=== PATIENT | male | born 1990 | race Caucasian/White ===

== ENCOUNTER 2017-12-22 14:35 | Emergency (ER) | payer BC, MEDICAID, OTHER ==
[2017-12-22 14:53] VITALS: BP 145/87
--- NOTE | 2017-12-22 15:11 | UC ---
Ear Complaint HPI - HPI Summary HPI Summary: ONSET OF RIGHT LOWER JAW PAIN TODAY THE PATIENT THINKS MIGHT BE DUE TO BAD TEETH. HE HAS HAD A MILD COUGH AND SOME RIGHT EAR PAIN FOR THE PAST FEW DAYS WELL. NO FEVER, NAUSEA/VOMITING. TOOK SOME TYLENOL WHICH SEEMED TO HELP. - History of Current Complaint Chief Complaint: UCDentalProblem Stated Complaint: JAW/ EAR PAIN Time Seen by Provider: 12/22/17 14:50 Hx Obtained From: Patient Onset/Duration: Gradual Onset, Lasting Days, Still Present Severity Initially: Moderate Severity Currently: Moderate Pain Intensity: 7 Pain Scale Used: 0-10 Numeric Alleviating Factors: Nothing Associated Signs/Symptoms: Positive: URI Symptoms - Allergies/Home Medications Allergies/Adverse Reactions: Allergies Allergy/AdvReac Type Severity Reaction Status Date / Time No Known Allergies Allergy Verified 12/22/17 14:54 PMH/Surg Hx/FS Hx/Imm Hx Previously Healthy: Yes - Surgical History Surgical History: None - Family History Known Family History: Positive: Hypertension - Social History Alcohol Use: Weekly Substance Use Type: Marijuana Substance Use Comment - Amount & Last Used: weekly Smoking Status (MU): Heavy Every Day Tobacco Smoker Type: Cigarettes Amount Used/How Often: 1 ppd Household Exposure Type: Cigarettes - Immunization History Most Recent Influenza Vaccination: unsure Most Recent Tetanus Shot: up to date Most Recent Pneumonia Vaccination: never Review of Systems Constitutional: Negative Skin: Negative ENT: Dental Pain, Ear Ache Respiratory: Negative Cardiovascular: Negative Gastrointestinal: Negative All Other Systems Reviewed And Are Negative: Yes Physical Exam Triage Information Reviewed: Yes Appearance: Well-Appearing, No Pain Distress, Well-Nourished Vital Signs: Initial Vital Signs Temp 98.8 F 12/22/17 14:44 Pulse 83 12/22/17 14:44 Resp 16 12/22/17 14:44 BP 145/87 12/22/17 14:44 Pulse Ox 97 12/22/17 14:44 Vital Signs Reviewed: Yes Eyes: Positive: Conjunctiva Clear ENT: Positive: Hearing grossly normal, Pharynx normal, TMs normal, Other - BILATERAL EAC IMPACTED WITH CERUMEN Dental: Positive: Gross Decay/Caries @ - ALL MOLARS WITH VISIBLE CAVITIES AND GROSS DECAY Neck: Positive: Supple, Nontender, Enlarged Nodes @ - SHOTTY SPFL CERVICAL LAD Respiratory Exam: Normal Cardiovascular Exam: Normal Abdomen Description: Positive: Soft Musculoskeletal: Positive: No Edema Neurological: Positive: Alert Psychological: Positive: Age Appropriate Behavior Skin: Negative: rashes Ear Complaint Course/Dx - Differential Dx/Diagnosis Provider Diagnoses: 1. DENTAL PAIN TOOTH #2. 2. CERUMEN IMPACTION - BILATERAL Discharge - Sign-Out/Discharge Documenting (check all that apply): Discharge/Admit/Transfer - Discharge Plan Condition: Stable Disposition: HOME Prescriptions: Amoxicillin/Clavulanate TAB* [Augmentin TAB 875*] 875 mg PO BID #20 tab Chlorhexidine MW 0.12% 473ML* [Peridex Mouth Wash 0.12%*] 15 ml SWISH SPIT BID # 1 bottle Ibuprofen TAB* [Motrin TAB* 600 MG] 1 tab PO Q6H PRN #30 tab PRN Reason: Pain Patient Education Materials: Cerumen Impaction (ED), Toothache (ED) Referrals: Jason Baron MD [Primary Care Provider] - If Needed Additional Instructions: FOLLOW-UP WITH A DENTIST ZAYRA. NOW THAT YOUR EAR CANALS ARE CLEAR OF WAX YOU MAY USE A QTIP TO GENTLY AND CAREFULLY CLEAN YOUR EARS ONCE OR TWICE A WEEK TO KEEP WAX FROM BUILDING UP. DO NOT INSERT THE QTIP ANY FURTHER THAN THE DEPTH OF THE [place] SWAB. YOUR BLOOD PRESSURE WAS ELEVATED TODAY (145/87). THIS MAY BE DUE TO YOUR ACUTE CONDITION. MONITOR AND FOLLOW-UP WITH YOUR PCP WITHIN 4 WEEKS IF IT HAS NOT RETURNED TO NORMAL. - Billing Disposition and Condition Condition: STABLE Disposition: Home
== END 2017-12-22 15:35 | disposition home or self-care (01) ==
LOC: UCEAST 14:35
DX: K08.89 Other specified disorders of teeth and supporting structures (principal); H61.23 Impacted cerumen, bilateral; F17.210 Nicotine dependence, cigarettes, uncomplicated
CPT/HCPCS: 99213; G0463

== ENCOUNTER 2018-08-24 17:06 | Emergency (ER) | payer OTHER ==
--- NOTE | 2018-08-24 18:29 | ED ---
Abdominal Pain/Male - HPI Summary HPI Summary: Provider saw the patient in triage. This patient is a 28 year old M presenting to [facility] with a chief complaint of right inguinal canal pain since 2 days ago. The patient rates the pain 8/10 in severity at its worse. The patient rates the pain 1/10 in severity currently. Symptoms aggravated by eating. Patient reports feeling blackout fainty at work. Patient denies testicular pain, penis discharge, and nausea. He did not take anything for pain. Patients last BM was normal and occurred this morning. He denies injury, but he did lift 3 heavy cartons of eggs the other day, prior to the onset of the pain, when he was at work at the [employer]. Pt also mentions that he is on Cephalexin after a right elbow injury requiring sutures, that got infected. He was treated at [facility]. Later history obtained on re-evaluation, pt states that he does occasionally do "lunges" as exercise, and at work when he slips and when he is carrying items, and may have injured himself. Home Medications Medication Instructions Recorded Confirmed Type Ibuprofen TAB* [Motrin TAB* 600 MG] 1 tab PO Q6H PRN #30 tab 12/22/17 08/17/18 Rx Cephalexin CAP* [Keflex 500 CAP*] 1 tab PO TID 08/07/18 08/17/18 History - History of Current Complaint Chief Complaint: EDAbdPain Stated Complaint: GROIN AREA PAIN PER PT Time Seen by Provider: 08/24/18 18:24 Hx Obtained From: Patient, Family/Property Field Inspector - patien't father is with him in the ED Onset/Duration: Sudden Onset, Lasting Days - 2 days, Still Present Timing: Constant Severity Initially: Severe - 8/10 at its worse Severity Currently: Mild Pain Intensity: 1 - when he is just sitting or lying down Pain Scale Used: 0-10 Numeric Location: Groin - Right groin Radiates: No Character: Sharp Aggravating Factor(s): Food Alleviating Factor(s): Nothing Associated Signs And Symptoms: Positive: Other - Feeling "blackout fainty at work." Denies testicular pain.. Negative: Nausea, Penile Discharge - Allergies/Home Medications Allergies/Adverse Reactions: Allergies Allergy/AdvReac Type Severity Reaction Status Date / Time No Known Allergies Allergy Verified 03/09/19 17:19 PMH/Surg Hx/FS Hx/Imm Hx Previously Healthy: No Cardiovascular History: Denies: Hx Hypertension Respiratory History: Denies: Hx Asthma GI History: Denies: Hx Hiatal Hernia Psychiatric History: Reports: Hx of Violent Episodes Against Others - U admissions years ago Denies: Hx Eating Disorder - Surgical History Surgery Procedure, Year, and Place: None Infectious Disease History: No Infectious Disease History: Denies: History Other Infectious Disease, Traveled Outside the [place] in Last 30 Days - Family History Known Family History: Positive: Cardiac Disease - Dad had MT, maternal grandfather with CAD, Hypertension, Other - Hernia from his dad; reviewing prior [facility] records, mother has bipolar - Social History Occupation: Employed Full-time Lives: With Family Alcohol Use: Weekly - Once a week Hx Substance Use: Yes Substance Use Type: Reports: Marijuana - Occasional Substance Use Comment - Amount & Last Used: weekly Hx Tobacco Use: Yes Smoking Status (MU): Heavy Every Day Tobacco Smoker - 1 PPD Type: Cigarettes Amount Used/How Often: 1 ppd Review of Systems Constitutional: Negative Cardiovascular: Negative Respiratory: Negative Positive: Other - right inguinal canal pain . Negative: Nausea Positive: no symptoms reported. Negative: discharge, other - Testicular pain Positive: Other - Right inguinal canal pain with weight bearing Skin: Negative Neurological: Other - feeling "blackout fainty at work" Psychological: Normal All Other Systems Reviewed And Are Negative: Yes Physical Exam - Summary Physical Exam Summary: Appearance: well-appearing, moderate pain distress, well-nourished, ambulatory Skin: Warm, color reflects adequate perfusion, dry. Healing incision on right olecranon. Wound is red on the edges but there is no drainage and it is intact. Head: Normal Head/Face inspection, atraumatic Eyes: Conjunctiva clear ENT: Normal inspection Neck: Supple, no nodes, no JVD Respiratory: Lungs clear, normal breath sounds, no respiratory distress Cardio: RRR, No murmur, pulses normal, brisk capillary refill Abdomen: Soft, nontender. 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 The area is dry, does not appear infected. Bowel sounds: Present Musculoskeletal: Strength Intact/ROM intact, no calf tenderness, no edema. Psychological: Normal Neuro: Alert, muscle tone normal, no focal deficit Genitourinary: Normal circumcised penis, no discharge, no pain in testicles on palpation, no masses, no swelling of scrotum Triage Information Reviewed: Yes Vital Signs On Initial Exam: Initial Vitals Temp Pulse Resp BP Pulse Ox 98.6 F 77 16 133/72 99 08/24/18 17:15 08/24/18 17:15 08/24/18 17:15 08/24/18 17:15 08/24/18 17:15 Vital Signs Reviewed: Yes Diagnostics - Vital Signs Vital Signs Temp Pulse Resp BP Pulse Ox 08/24/18 17:15 98.6 F 77 16 133/72 99 - Laboratory Result Diagrams: 08/24/18 19:35 08/24/18 19:35 Lab Statement: Any lab studies that have been ordered have been reviewed, and results considered in the medical decision making process. - Ultrasound No standard instances Ultrasound Interpretation Completed By: Radiologist Summary of Ultrasound Findings: Testicular US. 20:56. Sonographically normal testicles and epididymides. ED Physician has reviewed this imaging report. Re-Evaluation - Re-Evaluation First Eval Re-Evaluation Time: 22:30 Change: Improved Comment: Declines pain medication. IV is placed for CT with IV and oral contrast. Pain is controlled when lying down. Abd and right groin re- examined. Soft, non distended, no guarding, no rebound. Tender right inguinal groin muscle/tendon, point tenderness. Area is not red or hot. There are not lymph nodes. Abdominal Pain Male Course/Dx - Course Course Of Treatment: This patient is a 28 year old M presenting to [facility] with a chief complaint of right inguinal canal pain since 2 days ago. Testicular US. 20:56. Sonographically normal testicles and epididymides. Labs show normal WBC count, nl amylase and lipase, normal urine. Pt remains afebrile in the ED. No vomiting or diarrhea. Pt is able to tolerate drinking the oral contrast. Pt is signed out to Dr. Garcia at change of shift 2230 08/24/18, pending CT abd/ pelvis. Pt medications reviewed this visit. Nurses note reviewed. Allergies noted. - Diagnoses Differential Diagnosis/HQI/PQRI: Appendicitis, Bowel Obstruction, Constipation, Epididymitis, Pancreatitis, Renal Colic, Testicular Torsion Provider Diagnoses: Muscle pain, Right groin pain Discharge - Sign-Out/Discharge Documenting (check all that apply): Sign-Out Patient Signing out patient TO: Mark Garcia - Pending CT abd/pel Patient Received Moderate/Deep Sedation with Procedure: No - Discharge Plan Condition: Stable Disposition: HOME Patient Education Materials: Musculoskeletal Pain (ED) Forms: *Work Release Referrals: Jason Baron MD [Primary Care Provider] - 2 Days Additional Instructions: RETURN TO THE EMERGENCY DEPARTMENT FOR CHANGING OR WORSENING SYMPTOMS. FOLLOW UP WITH Dr. Baron IN 1-2 DAYS. - Billing Disposition and Condition Condition: STABLE Disposition: Home - Attestation Statements Document Initiated by Scribe: Yes Documenting Scribe: Jarad Ordaz Provider For Whom Scribe is Documenting (Include Credential): Gisselle Laird MD Scribe Attestation: Jarad Delacruz, scribed for Gisselle Laird MD on 08/25/18 at 0155. Scribe Documentation Reviewed: Yes Provider Attestation: The documentation as recorded by the Jarad carrillo accurately reflects the service I personally performed and the decisions made by me, Gisselle Laird MD Status of Scribe Document: Viewed
[2018-08-24] MEDS ORDERED: NS 0.9% 1000 ML** 1,000 ML IV ONE (19:19)
[2018-08-24 19:43] LABS: ABS Basophils 0 10^3/ul (0-0.2); ABS Eosinophils 0.3 10^3/ul (0-0.6); ABS Lymphocytes 3.2 10^3/ul (1.0-4.8); ABS Monocytes 0.6 10^3/ul (0-0.8); ABS Neutrophils 6.8 10^3/ul (1.5-7.7); ABS Nucleated RBC 0 10^3/ul; Eosinophil % 2.6 %; Hematocrit 43 % (42-52); Hemoglobin 14.7 g/dl (14.0-18.0); Mean Corpuscular HGB Conc 35 g/dl (31-36); Mean Corpuscular Hemoglobin 32 pg (27-31); Mean Corpuscular Volume 92 fL (80-94); Mean Platelet Volume 8.7 fL (7.4-10.4); Nucleated Red Blood Cells % 0; Platelet Count 229 10^3/ul (150-450); Red Blood Count 4.62 10^6/ul (4.00-5.40); Red Cell Distribution Width 13 % (10.5-15); White Blood Count 10.9 10^3/ul (3.5-10.8)
[2018-08-24 19:51] LABS: Activated Partial Thrombo Time 28.5 seconds (26.0-36.3)
[2018-08-24 20:06] LABS: ALT 16 U/L (7-52); AST 20 U/L (13-39); Albumin 4.7 g/dL (3.2-5.2); Albumin/Globulin Ratio 1.8 (1-3); Alkaline Phosphatase 72 U/L (34-104); Amylase 82 U/L (29-103); Anion Gap 5 mmol/L (2-11); BUN/Creatinine Ratio 27.3 (8-20); Blood Urea Nitrogen 24 mg/dL (6-24); C Reactive Protein < 1.00 mg/L (<8.01); CO2 Carbon Dioxide 27 mmol/L (22-32); Calcium 9.6 mg/dL (8.6-10.3); Chloride 106 mmol/L (101-111); Creatine Kinase 220 U/L (10-223); EGFR African American 125.7 (>60); EGFR Non-African American 103.9 (>60); Globulin 2.6 g/dL (2-4); Glucose 94 mg/dL (70-100); Potassium 4.1 mmol/L (3.5-5.0); Sodium 138 mmol/L (135-145); Total Protein 7.3 g/dL (6.4-8.9)
[2018-08-24 20:35] LABS: Urine Appearance Cloudy; Urine Bilirubin Negative (Negative); Urine Blood Negative (Negative); Urine Color Yellow; Urine Glucose Negative (Negative); Urine Ketones Negative (Negative); Urine Nitrite Negative (Negative); Urine Protein Negative (Negative); Urine Specific Gravity 1.018 (1.010-1.030); Urine Urobilinogen Negative (Negative)
--- NOTE | 2018-08-24 22:15 | ED ---
Progress - Progress Note Progress Note: This patient was signed out by Dr Laird to Dr. Garcia, awaiting CT abd/pelvis results. - EKG/XRAY/CT CT: CT abd/pelvis: No CT findings to correlate with patient's symptomatology. Course/Dx - Course Course Of Treatment: This patient was signed out by Dr Laird to Dr. Garcia, awaiting CT abd/pelvis results. CT abd/pelvis reveals, per radiologist, No CT findings to correlate with patient's symptomatology. ED physician has reviewed this radiology report. Patient will be discharged with follow up from Dr. Baron. The patient is agreeable with this plan. - Diagnoses Provider Diagnoses: Muscle pain Discharge - Sign-Out/Discharge Documenting (check all that apply): Patient Departure - discharge, Receiving Sign-Out Receiving patient FROM: Gisselle Laird Patient Received Moderate/Deep Sedation with Procedure: No - Discharge Plan Condition: Stable Disposition: HOME Patient Education Materials: Musculoskeletal Pain (ED) Forms: *Work Release Referrals: Jason Baron MD [Primary Care Provider] - 2 Days Additional Instructions: RETURN TO THE EMERGENCY DEPARTMENT FOR CHANGING OR WORSENING SYMPTOMS. FOLLOW UP WITH Dr. Baron IN 1-2 DAYS. - Attestation Statements Document Initiated by Scribe: Yes Documenting Scribe: Arthur Tineo Provider For Whom Sebas is Documenting (Include Credential): Mark Garcia MD Scribe Attestation: Arthur Delacruz, scribed for Mark Garcia MD on 08/25/18 at 0018. Status of Scribe Document: Ready
[2018-08-24] MEDS ORDERED: Iohexol 300* (CONTRAST) 10 ML SDV IV ONE (22:44)
[2018-08-25 00:50] VITALS: BP 128/76
== END 2018-08-25 00:30 | disposition home or self-care (01) ==
LOC: ED 17:06
DX: M79.10 Myalgia, unspecified site (principal); R10.30 Lower abdominal pain, unspecified; F17.210 Nicotine dependence, cigarettes, uncomplicated
CPT/HCPCS: 36415; 74177; 76870; 80053; 81003; 82150; 82550; 83605; 83690; 83735; 85025; 85610; 85730; 86140; 96360; 99283; Q9967